=== PATIENT | male | born 1960 | race Caucasian/White ===

== ENCOUNTER 2019-07-13 14:35 | Emergency (ER) | payer BC, OTHER ==
[2019-07-13 14:51] VITALS: BP 143/73
--- NOTE | 2019-07-13 15:31 | UC ---
Throat Pain/Nasal [place]lysses HPI - HPI Summary HPI Summary: 59-year-old male comes in with a chief complaint of sinusitis symptoms for 4 days. He's got green rhinorrhea sinus pressure. With postnasal drip he's having some cough. No complaint of shortness of breath. No known contact with anyone with Covid 19. Patient does work at [employer]. - History of Current Complaint Chief Complaint: UCRespiratory Stated Complaint: SINUS CONCERN,CONGESTION Time Seen by Provider: 07/13/19 15:04 Pain Intensity: 0 - Allergies/Home Medications Allergies/Adverse Reactions: Allergies Allergy/AdvReac Type Severity Reaction Status Date / Time ibuprofen Allergy See Comment Verified 07/13/19 14:47 sulfamethoxazole Allergy Headache Verified 07/13/19 14:47 [From Bactrim] trimethoprim [From Bactrim] Allergy Headache Verified 07/13/19 14:47 Home Medications: Home Medications Amoxicillin/Clavulanate TAB* [Augmentin TAB 875*] 875 mg PO BID #20 tab [Rx] PMH/Surg Hx/FS Hx/Imm Hx Previously Healthy: Yes - Surgical History Surgical History: Yes Surgery Procedure, Year, and Place: 05/2011 EGD, COLONOSCOPY, [facility]. 05/2011 AND 09/2011 INTERNAL URETHROTOMY, [facility], [facility] - Family History Known Family History: Positive: Cardiac Disease - Mom [place] age 50s - Social History Alcohol Use: None Substance Use Type: None Smoking Status (MU): Heavy Every Day Tobacco Smoker Type: Cigarettes Amount Used/How Often: 1 PPD Have You Smoked in the Last Year: Yes Household Exposure Type: Cigarettes Review of Systems All Other Systems Reviewed And Are Negative: Yes Constitutional: Positive: Other - see hpi Skin: Positive: Negative Eyes: Positive: Negative ENT: Positive: Nasal Discharge, Sinus Congestion, Sinus Pain/Tenderness Respiratory: Positive: Cough Cardiovascular: Positive: Negative Gastrointestinal: Positive: Negative Motor: Positive: Negative Neurovascular: Positive: Negative Musculoskeletal: Positive: Negative Neurological/Mental Status: Positive: Negative Psychological: Positive: Negative Is Patient Immunocompromised?: No Physical Exam Triage Information Reviewed: Yes Appearance: Well-Appearing, No Pain Distress, Well-Nourished Vital Signs: Initial Vital Signs Temp 98.3 F 07/13/19 14:47 Pulse 89 07/13/19 14:47 Resp 16 07/13/19 14:47 BP 143/73 07/13/19 14:47 Pulse Ox 98 07/13/19 14:47 Vital Signs Reviewed: Yes Eye Exam: Normal Eyes: Positive: Conjunctiva Clear ENT: Positive: Pharynx normal, Nasal congestion, Nasal drainage, TMs normal Neck: Positive: Supple Respiratory: Positive: Lungs clear, Normal breath sounds, No respiratory distress Cardiovascular: Positive: RRR Musculoskeletal: Positive: Strength Intact, ROM Intact Neurological: Positive: Alert, Muscle Tone Normal Psychological: Positive: Age Appropriate Behavior Skin Exam: Normal Throat Pain/Nasal Course/Dx - Course Course Of Treatment: DISCUSSED VIRAL VERSES BACTERIAL INFECTIONS AND THE ROLE OF ANTIBIOTICS. THE PATIENT PREFERS TO BE ON ANTIBIOTICS AT THIS TIME. Patient does have a cough with the postnasal drip. Does not have any fever does not have any lower respiratory symptoms shortness of breath. At this time the patient's low risk for Covid 19. Discussed that if he got worse he needs to get reevaluated. - Differential Dx/Diagnosis Provider Diagnosis: Sinusitis Discharge ED - Sign-Out/Discharge Documenting (check all that apply): Patient Departure All imaging exams completed and their final reports reviewed: No Studies - Discharge Plan Condition: Stable Disposition: HOME Prescriptions: Amoxicillin/Clavulanate TAB* [Augmentin TAB 875*] 875 mg PO BID #20 tab Patient Education Materials: Sinusitis (ED) Forms: *Work Release Referrals: Adrian Plascencia MD [Primary Care Provider] - Additional Instructions: FOLLOW UP WITH YOUR DOCTOR IF NOT COMPLETELY IMPROVED. GET REEVALUATED IF NOT IMPROVING OR WORSE OR ANY QUESTIONS OR CONCERNS. - Billing Disposition and Condition Condition: STABLE Disposition: Home
== END 2019-07-13 15:35 | disposition home or self-care (01) ==
LOC: UCCORT 14:35
DX: J32.9 Chronic sinusitis, unspecified (principal); Z88.6 Allergy status to analgesic agent; Z88.2 Allergy status to sulfonamides; Z88.1 Allergy status to other antibiotic agents; F17.210 Nicotine dependence, cigarettes, uncomplicated; R05 Cough
CPT/HCPCS: 99212; G0463